=== PATIENT | male | born 1985 | race Caucasian/White ===

== ENCOUNTER 2017-09-13 20:35 | Inpatient (IN) | payer OTHER ==
[~2017-09-13] VITALS: Ht 177.8 cm; Wt 68.8 kg
[~2017-09-13 20:35] MED LIST: EFFSR75 PO; NICO14DI5 TD; ZYP10 PO
[2017-09-13 20:58] VITALS: BP 135/81; PULSE 65; TEMP 37; BMI 21.8
[2017-09-13] MEDS ORDERED: MAGNESIUM HYDROXIDE SUSP 30 ML UDC PO PRN (22:00)
[2017-09-13] MEDS ORDERED: hydrOXYzine HCL 25 MG TAB PO PRN (22:00)
[2017-09-13] MEDS ORDERED: ALUMINUM/MAGNESIUM SUSP 30 ML UDC PO PRN (22:00)
[2017-09-13] MEDS ORDERED: NICOTINE 14 MG/24 HR TDSY TD PRN (22:00)
[2017-09-13] MEDS ORDERED: BISMUTH SUBSALICYLATE PER ML OMNICELL CHARGE PO PRN (22:00)
[2017-09-13] MEDS ORDERED: LORAZEPAM 1 MG TAB PO PRN (22:00)
[2017-09-13] MEDS ORDERED: SODIUM CHLORIDE 0.65% NA SOLN 45 ML (OCEAN) PRN (22:00)
[2017-09-13] MEDS ORDERED: ACETAMINOPHEN 325 MG TAB PO PRN (22:00)
[2017-09-13] MEDS: QUETIAPINE FUMARATE 25 MG TAB PO PRN (22:55)
[2017-09-14 06:56] VITALS: BP_SYST 107; BP_SYST 110; BP_DIAS 69; BP_DIAS 70; PULSE 64; PULSE 69; TEMP 36.5
[2017-09-14 07:09] VITALS: Ht 177.8 cm; Wt 68.8 kg
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
[2017-09-14] MEDS: THIAMINE HCL 100 MG TAB PO SCH (09:14)
[2017-09-14] MEDS ORDERED: FLUOXETINE HCL 10 MG CAP PO ONE (11:43)
[2017-09-14] MEDS: hydrOXYzine HCL 25 MG TAB PO PRN ×2 (21:33→22:22)
[2017-09-14] MEDS: QUETIAPINE FUMARATE 25 MG TAB PO PRN (23:11)
[2017-09-15 06:50] VITALS: BP_SYST 106; BP_SYST 107; BP_DIAS 66; PULSE 56; PULSE 60; TEMP 36.5
[2017-09-15] MEDS: THIAMINE HCL 100 MG TAB PO SCH (08:37)
[2017-09-15] MEDS: FLUOXETINE HCL 10 MG CAP PO SCH (08:37)
[2017-09-15] MEDS: NICOTINE 14 MG/24 HR TDSY TD SCH (09:26)
--- NOTE | 2017-09-15 15:52 | Psychiatric Progress Notes ---
Progress Note Date of Service Sep 15, 2017. Interval History 31 yo male admitted voluntarily on 09/13/17 after presenting with depression, suicidality and alcohol abuse. Chief Complaint "I'm feeling better.". Subjective Patient was seen & assessed interval progress reviewed with Treatment Team. The patient says that he is feeling much better than on admission. He is very hopeful that the new antidepressant will work better than the last one, but acknowledges that he has to actually take it. Says he has trouble remembering, but has a smart phone and could set an alarm. His "biggest downfall" is his drinking, saying that he binges drinks, "way too much". He was in rehab 4-5 years ago, and has only ever been to one rehab. He voices commitment to getting and staying sober, saying he needs to explore all of the AA meeting locally. He has talked with his girlfriend and he says that they are still together despite the arguments prior to admission. He is denying SI today, but still complains of poor sleep despite 2 doses of vistaril. He says that the Zyprexa has worked best for him in the past, but overdosed on it CLOSER ON. Review of Systems Constitutional: + fatigue ENT: No hearing loss, No unusual epistaxis, No nasal symptoms, No sore throat, No tinnitus, No dental problems, No trouble swallowing, No problem reported Respiratory: No cough, No sputum, No wheezing, No shortness of breath, No dyspnea on exertion, No dyspnea at rest, No hemoptysis, No problem reported Cardiovascular: No chest pain, No orthopnea, No PND, No edema, No claudication , No palpitations, No problem reported Abdomen: No pain, No nausea, No vomiting, No diarrhea, No constipation, No GI bleeding, No problem reported Musculoskeletal: No joint pain, No muscle pain, No swelling, No calf pain, No problem reported Neurologic: No memory loss, No paralysis, No weakness, No numbness/tingling, No vertigo, No balance problems, No problem reported Psychiatric: + depression symptoms (improving), + insomnia Integumentary: No rash, No itch, No new/changing skin lesions, No color change , No bleeding, No problem reported Sleep Information Total Hours of Sleep: 5.00 Meal Information Percent of Breakfast Consumed: 100 Percent of Lunch Consumed: 100 Percent of Dinner Consumed: 95 Mental Status Exam During interview pt is: alert and oriented, cooperative Appearance: appropriately dressed, appropriately groomed Eye contact is: fair Motor behavior is: steady gait & station, no abnormal motor movements Speech: normal in rate, rhythm & volume Affect: blunted Mood is: other ("Fine.") Thought process: goal directed, concrete Thought content: reality based without delusions Suicidal thought are: denied (But overdosed on multiple medications in a suicide attempt 3 days ago, requiring ICU admission.) Homicidal thoughts are: denied Hallucinations: denies auditory, denies visual Cognition: attention grossly intact, language grossly intact, other (Memory impaired for events prior to admission.) Intelligence estimated to be: below average Insight: impaired Judgement: impaired Impression Adjusting to the support and structure of the milieu. Will have staff provide the recovery workbook to get him focused on his sobriety. Also introduced him to the [employer] [employer] for his phone. Tolerating initial doses of Prozac and may be able to go to 20 mg in the next few days. 302 will on 09/18 but will not likely meet criteria for a 303. Plan (1) Overdose 09/14 -overdosed on a 2 week supply of olanzapine and venlafaxine XR, with resulting tachycardia, sedation, and QTC prolongation, all of which have since resolved. -We will avoid medications dangerous in overdose due to his history of multiple overdoses and suicide attempts, and will need a good safety plan, including recommendations that someone else hold his medications and dispense them daily. If this is not possible, will prescribe one week supply at a time. -Suicide checks for safety. -Encourage group attendance and participation, work on healthy coping skills and a discharge safety plan. -Family meeting with girlfriend. (2) Depression, psychotic 09/14 -venlafaxine XR and olanzapine discontinued at outside hospital due to overdose. Will not resume venlafaxine due to his poor compliance and risk of discontinuation syndrome and worsening of symptoms with erratic dosing. Discussed a trial of fluoxetine, which is safer due to its long half-life when taken erratically, as patient has a history of poor compliance with treatment, it is likely to continue in his previous patterns. After reviewing the risks, benefits, and possible side effects, he agreed. Start 10 mg daily. -Continue quetiapine 50 mg at bedtime that was started on admission. No psychotic symptoms currently, and psychotic symptoms he reported during his last hospitalizations were atypical, and may not represent true psychosis. -Patient was noncompliant with outpatient treatment, and was encouraged to call [facility] to determine if he can reschedule his missed intake. The importance of good compliance with treatment was reviewed with him, and he shows limited insight into his responsibility for his situation. 09/15 - Continue current meds and plan (3) Cluster B personality disorder Significant personality disorder traits, including borderline and antisocial. (4) Alcohol use disorder, severe, dependence 09/14 -continues to drink heavily, with a blood alcohol level of 302 on admission to the outside hospital. Continue AWSS protocol and lorazepam as needed for alcohol withdrawal. The patient's AUDIT score suggests problematic drinking (Zone III WHO). Brief intervention was offered and accepted Intervention was greater than 5 min in length. Brief interventions include: 1. Assess Readiness to Quit, 2. Advise: Help Patient to Reduce or Abstain from Alcohol, 3. Agree: Set Specific, Feasible Goals, 4. Assist: Anticipate barriers, Problem-Solving Solutions. Social work to 5. Arrange: Referrals to appropriate treatment. Summary of intervention: The patient is in precontemplation stage with regards to transtheoretical model of change. The patient is advised to decrease alcohol consumption due to depressant effects and risk of interactions with prescription medications. The patient agreed to "just stop drinking," and will be provided with recovery materials to continue to education self on how to cope with their condition without drinking. 09/15 - Recovery protocol - REcommend AA and So[facility] Grid (5) cannabis use disorder 09/14 -patient advised of the risks of ongoing cannabis use, but displays little insight and no desire to change his behavior. (6) Nicotine addiction Nicotine cessation education, and continue patch as needed for cravings. Discharge / Aftercare Planning Primary Care Physician: Name: 0 Therapist: Name: 0 Visit Code E&M Code: 02306 Inventory Assets Strengths: has children, supportive girlfriend Needs: honesty, treatment compliance, sobriety, outpatient treatment Risk Factors Assessment Male: Yes : Yes /single/: Yes Higher / Fall in social status: No Health problems: Yes Mental Health Diagnoses: Yes Substance use disorders: Yes Previous attempt: Yes Family history of suicide: No Previous psychiatric stay: Yes Smoker: Yes Protective Factors Assessment Zoroastrian beliefs: No : No Responsible for young children: No Employed: No Stable relationships: No Supportive family: No Good rapport with provider: No Absence of risk factors above: No Data Vital Signs Last 24 Hrs: Date Time Temp Pulse Resp B/P (MAP) Pulse Ox O2 Delivery O2 Flow Rate FiO2 09/15/17 06:50 36.5 56 16 107/66 60 106/66 Meds Administered Last 24 Hrs: Meds Administered (Past 24Hrs) Medications (Trade) Dose Ordered Sig/Luiz Route Start Time Stop Time Status Last Admin Dose Admin Nicotine (Nicoderm Cq 14MG Patch) 1 patch QAM PRN TD 09/13/17 22:00 09/15/17 08:19 DC 09/13/17 22:55 1 PATCH Quetiapine Fumarate (seroQUEL TAB) 50 mg HS PRN PO 09/13/17 22:00 10/13/17 21:59 09/14/17 23:11 50 MG Hydroxyzine HCl (Vistaril Tab) 50 mg HSZ PRN PO 09/13/17 22:00 10/13/17 21:59 09/14/17 22:22 50 MG Thiamine HCl (Vitamin B-1 Tab) 100 mg DAILY PO 09/14/17 09:00 10/14/17 08:59 09/15/17 08:37 100 MG Fluoxetine HCl (Prozac Cap) 10 mg QAM PO 09/15/17 09:00 10/15/17 08:59 09/15/17 08:37 10 MG Fluoxetine HCl (Prozac Cap) 10 mg 1143 ONCE PO 09/14/17 11:43 09/14/17 12:01 DC 09/14/17 12:26 10 MG Nicotine (Nicoderm Cq 14MG Patch) 1 patch QAM TD 09/15/17 09:00 10/13/17 21:59 09/15/17 09:26 1 PATCH Problem Qualifiers (1) Overdose: Injury intent: intentional self-harm
[2017-09-15] MEDS: QUETIAPINE FUMARATE 25 MG TAB PO PRN (22:10)
[2017-09-16 06:58] VITALS: BP_SYST 111; BP_SYST 115; BP_DIAS 78; PULSE 51; PULSE 76; TEMP 36.5
[2017-09-16] MEDS: NICOTINE 14 MG/24 HR TDSY TD SCH (08:31)
[2017-09-16] MEDS: THIAMINE HCL 100 MG TAB PO SCH (08:32)
[2017-09-16] MEDS: FLUOXETINE HCL 10 MG CAP PO SCH (08:32)
--- NOTE | 2017-09-16 08:32 | Psychiatric Progress Notes ---
Progress Note Date of Service Sep 16, 2017. Interval History 31 yo male admitted voluntarily on 09/13/17 after presenting with depression, suicidality and alcohol abuse. Chief Complaint "Good, except for the sleep". Subjective Patient was seen & assessed interval progress reviewed with Treatment Team. Staff report he is reporting improved mood, but wanting to be put back on medications that were stopped due to intentional overdose. His sleep remains poor, nicotine patch was removed and he requested and received hydroxyzine 2 in addition to quetiapine 50 mg. Staff spoke with Latonia Villa, his [facility] Domestic Relations worker, who stated that he has had ongoing issues with employment and child support noncompliance and not keeping her informed of his situation. She stated that "he has done this before" when referring to attempting suicide in order to avoid child support responsibilities. Latonia confirmed that he has a court date on October 09, but he will not be going to [facility] for not having employment. On my assessment, he continues to report improved mood, but ongoing difficulty with sleep. He describes restless sleep, waking up frequently, getting 4-5.5 hours a night. He is willing to increase the quetiapine as above. He has a meeting with his girlfriend today, and states he has decided not to drink alcohol anymore, and told his girlfriend, friends, and stepmother, and they are supportive. He states he is trying to "stay positive, do what I need to do, stay active, not isolate." He thinks his medications are helping, as he reports improved mood and says he is "more talkative, interacting with the group more." He denies significant anxiety, and denies suicidal thoughts. He is hoping to be discharged tomorrow, so that he can work on getting a job prior to his court date. He did not call [facility] as discussed on Thursday, so has no aftercare scheduled. He is willing to have his girlfriend secure medications and dispense to him daily. Sleep Information Total Hours of Sleep: 3.75 Meal Information Percent of Breakfast Consumed: 100 Percent of Lunch Consumed: 100 Percent of Dinner Consumed: 100 Mental Status Exam During interview pt is: alert and oriented, cooperative Appearance: appropriately dressed (Sleeveless T-shirt, multiple tattoos on bilateral upper extremities), appropriately groomed (Just showered, hair is wet and combed) Eye contact is: good Motor behavior is: steady gait & station, no abnormal motor movements Speech: normal in rate, rhythm & volume Affect: blunted (But brightens appropriately) Mood is: other ("Getting better.") Thought process: goal directed, concrete Thought content: reality based without delusions Suicidal thought are: denied (But overdosed on multiple medications in a suicide attempt prior to admission, requiring ICU admission.) Homicidal thoughts are: denied Hallucinations: denies auditory, denies visual Cognition: memory grossly intact, attention grossly intact, language grossly intact Intelligence estimated to be: below average Insight: impaired Judgement: impaired Impression Mood improving with the support and structure of the milieu, but has not made efforts to address his ongoing stressors, including noncompliance with treatment and legal issues (was advised to call [facility] on Thursday, but did not, and declining substance abuse treatment). Has been provided the recovery workbook to get him focused on his sobriety. Has a meeting with his girlfriend today. Tolerating initial doses of Prozac and quetiapine. 302 will on but will not likely meet criteria for a 303. Plan (1) Overdose 09/14 -overdosed on a 2 week supply of olanzapine and venlafaxine XR, with resulting tachycardia, sedation, and QTC prolongation, all of which have since resolved. -We will avoid medications dangerous in overdose due to his history of multiple overdoses and suicide attempts, and will need a good safety plan, including recommendations that someone else hold his medications and dispense them daily. If this is not possible, will prescribe one week supply at a time. -Suicide checks for safety. -Encourage group attendance and participation, work on healthy coping skills and a discharge safety plan. -Family meeting with girlfriend. 09/16 -Meeting with girlfriend. -Recommend GF hold medications and dispense daily, so that patient doesn't have access to large amounts of pills due to recent OD, which patient states agreement with. (2) Depression 09/14 -previous diagnosis of psychotic depression, but no psychotic symptoms evident at this time. -venlafaxine XR and olanzapine discontinued at outside hospital due to overdose. Will not resume venlafaxine due to his poor compliance and risk of discontinuation syndrome and worsening of symptoms with erratic dosing. Discussed a trial of fluoxetine, which is safer due to its long half-life when taken erratically, as patient has a history of poor compliance with treatment, it is likely to continue in his previous patterns. After reviewing the risks, benefits, and possible side effects, he agreed. Start 10 mg daily. -Continue quetiapine 50 mg at bedtime that was started on admission. No psychotic symptoms currently, and psychotic symptoms he reported during his last hospitalizations were atypical, and may not represent true psychosis. -Patient was noncompliant with outpatient treatment, and was encouraged to call [facility] to determine if he can reschedule his missed intake. The importance of good compliance with treatment was reviewed with him, and he shows limited insight into his responsibility for his situation. 09/15 - Continue current meds and plan 09/16 -Patient reports mood is improving, tolerating fluoxetine well. No psychotic symptoms endorsed or observed during this hospitalization, and it is not clear to me that his previous reports of hallucinations were true psychosis. He has been started on low-dose quetiapine for assistance with mood and sleep, which could certainly be titrated up further if a concern for psychotic symptoms arose. Dose has been increased to 75 mg at bedtime tonight to target sleep, and I will add an additional 25 mg dose if needed. He reports poor response to multiple sleep medications in the past. Patient also advised to remove his nicotine patch at night, as it may interfere with sleep. -Fasting labs for baseline on an atypical antipsychotic were checked on 07/20/2017 , and were within normal limits. -Family meeting with girlfriend today. hog worker spoke with his [facility] domestic relations worker, who states patient has demonstrated ongoing noncompliance with employment and child support, and has attempted suicide in the past to avoid his child support responsibilities. She confirmed that he has a court date on 10/09/2017. The differential includes personality disorder and malingering. -Patient again advised to call [facility] to see if he can reschedule his intake, as he has not yet followed through with that. (3) Cluster B personality disorder Significant personality disorder traits, including borderline and antisocial. 09/16 -quetiapine may be helpful for personality disorder traits as well, could also consider a trial of an antiepileptic such as lamotrigine for impulsivity in the future. Outpatient domestic relations worker states patient has a history of suicide attempts/gestures and attempts to avoid his child support responsibilities, and has not been compliant with requirements that he work, pay child support, and inform her of his situation. He does have a court date coming up regarding his nonpayment of child support. Patient has been encouraged to engage in gainful employment, and is psychiatrically capable of working. (4) Alcohol use disorder, severe, dependence 09/14 -continues to drink heavily, with a blood alcohol level of 302 on admission to the outside hospital. Continue AWSS protocol and lorazepam as needed for alcohol withdrawal. The patient's AUDIT score suggests problematic drinking (Zone III WHO). Brief intervention was offered and accepted Intervention was greater than 5 min in length. Brief interventions include: 1. Assess Readiness to Quit, 2. Advise: Help Patient to Reduce or Abstain from Alcohol, 3. Agree: Set Specific, Feasible Goals, 4. Assist: Anticipate barriers, Problem-Solving Solutions. Social work to 5. Arrange: Referrals to appropriate treatment. Summary of intervention: The patient is in precontemplation stage with regards to transtheoretical model of change. The patient is advised to decrease alcohol consumption due to depressant effects and risk of interactions with prescription medications. The patient agreed to "just stop drinking," and will be provided with recovery materials to continue to education self on how to cope with their condition without drinking. 09/15 - Recovery protocol - Recommend AA and [facility] 09/16 -Patient is working on the recovery workbook, and states willingness to engage with AA after discharge. -Family meeting with girlfriend today, will review recommendations for sobriety. He states he has already told his girlfriend and friends that he will not be drinking anymore, and that his girlfriend and stepmother support this. (5) cannabis use disorder 09/14 -patient advised of the risks of ongoing cannabis use, but displays little insight and no desire to change his behavior. (6) Nicotine addiction Nicotine cessation education, and continue patch as needed for cravings. Discharge / Aftercare Planning Primary Care Physician: Name: 0 Therapist: Name: 0 Visit Code E&M Code: 27178 Inventory Assets Strengths: has children, supportive girlfriend Needs: honesty, treatment compliance, sobriety, outpatient treatment Risk Factors Assessment Male: Yes : Yes /single/: Yes Higher / Fall in social status: No Health problems: Yes Mental Health Diagnoses: Yes Substance use disorders: Yes Previous attempt: Yes Family history of suicide: No Previous psychiatric stay: Yes Smoker: Yes Protective Factors Assessment Jain beliefs: No : No Responsible for young children: No Employed: No Stable relationships: No Supportive family: No Good rapport with provider: No Absence of risk factors above: No Data Vital Signs Last 24 Hrs: Date Time Temp Pulse Resp B/P (MAP) Pulse Ox O2 Delivery O2 Flow Rate FiO2 09/16/17 06:58 36.5 51 16 115/78 76 111/78 Meds Administered Last 24 Hrs: Meds Administered (Past 24Hrs) Medications (Trade) Dose Ordered Sig/Luiz Route Start Time Stop Time Status Last Admin Dose Admin Thiamine HCl (Vitamin B-1 Tab) 100 mg DAILY PO 09/14/17 09:00 10/14/17 08:59 09/15/17 08:37 100 MG Fluoxetine HCl (Prozac Cap) 10 mg QAM PO 09/15/17 09:00 10/15/17 08:59 09/15/17 08:37 10 MG Fluoxetine HCl (Prozac Cap) 10 mg 1143 ONCE PO 09/14/17 11:43 09/14/17 12:01 DC 09/14/17 12:26 10 MG Nicotine (Nicoderm Cq 14MG Patch) 1 patch QAM TD 09/15/17 09:00 10/13/17 21:59 09/15/17 09:26 1 PATCH Miscellaneous (Remove Nicoderm Patch) 1 ea DAILY@2200 N/A 09/15/17 22:00 10/15/17 21:59 09/16/17 01:08 1 EA Problem Qualifiers (1) Overdose: Injury intent: intentional self-harm (2) Depression: Depression Type: major depressive disorder Major depression recurrence: recurrent
[2017-09-16] MEDS ORDERED: QUETIAPINE FUMARATE 25 MG TAB PO PRN (09:30)
[2017-09-16] MEDS ORDERED: QUETIAPINE FUMARATE 25 MG TAB PO SCH (22:00)
[2017-09-17 07:29] VITALS: BP_SYST 106; BP_SYST 117; BP_DIAS 66; BP_DIAS 73; PULSE 72; PULSE 88; TEMP 36.6
[2017-09-17] MEDS: FLUOXETINE HCL 10 MG CAP PO SCH (08:28)
[2017-09-17] MEDS: THIAMINE HCL 100 MG TAB PO SCH (08:29)
[2017-09-17] MEDS: NICOTINE 14 MG/24 HR TDSY TD SCH (08:32)
[2017-09-17] MEDS ORDERED: SRQ25 PO (09:56)
[2017-09-17] MEDS ORDERED: FLUO10CA24 PO (09:56)
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
== END 2017-09-17 14:12 | disposition home or self-care (01) | DRG 885 ==
LOC: C.MHU 20:35
PROVIDERS: ADMIT Student in an Organized Health Care Education/Training Program; ATTEND Psychiatry & Neurology Psychiatry
DX: F32.3 Major depressive disorder, single episode, severe with psychotic features (principal); F10.10 Alcohol abuse, uncomplicated; F12.10 Cannabis abuse, uncomplicated; T43.591A Poisoning by other antipsychotics and neuroleptics, accidental (unintentional), initial encounter; T43.201A Poisoning by unspecified antidepressants, accidental (unintentional), initial encounter; F60.3 Borderline personality disorder; F17.200 Nicotine dependence, unspecified, uncomplicated